=== PATIENT | male | born 1960 | race Caucasian/White ===

== ENCOUNTER 2016-09-02 17:56 | Emergency (ER) | payer OTHER ==
[2016-09-02 20:31] LABS: HEMOGLOBIN 16.5 gm/dl (14.0-17.5); RED BLOOD COUNT 5.12 M/UL (4.20-5.50); WHITE BLOOD COUNT 5.4 K/UL (4.5-11.0)
[2016-09-02 21:00] LABS: BUN/CREATININE RATIO 13 (0-10)
== END 2016-09-02 22:04 | disposition home or self-care (01) ==
LOC: ER1 17:56
PROVIDERS: Specialist/Technologist Athletic Trainer
DX: T78.40XA Allergy, unspecified, initial encounter (principal); E78.5 Hyperlipidemia, unspecified; E78.00 Pure hypercholesterolemia, unspecified; Z88.8 Allergy status to other drugs, medicaments and biological substances; W57.XXXA Bitten or stung by nonvenomous insect and other nonvenomous arthropods, initial encounter
CPT/HCPCS: 36415; 71010; 80053; 82550; 82553; 83874; 83880; 84484; 85025; 96374; 96375; 99283; J1200; J2930